=== PATIENT | female | born 1970 | race African-American/Black ===

== ENCOUNTER 2022-12-05 18:06 | Emergency (ER) | payer BC, SELFPAY ==
--- NOTE | ~2022-12-05 | XR_ITS ---
EXAMINATION: XR foot LT min 3V DATE: 12/05/2022 21:00 INDICATION: Left heel pain. TECHNIQUE: 3 views of left foot were obtained. COMPARISON: None. FINDINGS: There is moderate hallux valgus. No fracture. There is mild osteoarthritis of first metatar sophalangeal joint. There is mild midfoot osteoarthritis. There are enthesophytes at the posterior an d plantar aspects of calcaneal tuberosity. IMPRESSION: 1. Mild polyarticular osteoarthritis. 2. Moderate hallux valgus. Reviewed, dictated and finalized at location E.
[2022-12-05 18:34] VITALS: BP 133/101; PULSE 68; RESP 18; TEMP 36.6; O2SAT 100
--- NOTE | 2022-12-05 20:54 | ED.EXTPRO ---
HPI - Extremity Problem General Chief complaint: Extremity Problem,Nontraumatic Stated complaint: swelling to feet Time Seen by Provider: 12/05/22 19:45 History of Present Illness HPI Narrative: Patient is a 52-year-old female presenting with bilateral feet swelling. Patient states that she recently came home from a trip. States that after the flight, she noticed that both of her ankles and feet were swollen. States that they felt tight and kind of sore. She then went to work today and she is on her feet all day. States that they have started to become less swollen but after being on her feet they were more swollen again. States that she has some pain in her left heel. She denies any calf swelling, redness, soreness. No prior blood clots. No chest pain or shortness of breath. No recent trauma. No further concerns. Related Data Home Medications Medication Instructions Recorded Confirmed phenazopyridine 95 mg tablet 95 mg PO TID 12/14/18 12/14/18 sulfamethoxazole 800 1 tablet PO Q12H 12/14/18 12/14/18 mg-trimethoprim 160 mg tablet (Bactrim DS) Allergies Allergy/AdvReac Type Severity Reaction Status Date / Time latex Allergy Anaphylaxis Verified 12/05/22 19:27 Review of Systems Review of Systems: All systems reviewed & are unremarkable except as noted in HPI and below PMFSH Social History Social History Gender identity (if verbalized by the patient): Female Exam Narrative: GENERAL: Well-appearing, in no acute distress, pleasant and cooperative HEAD: Normocephalic, atraumatic. EYES: PERRLA and EOMI. ENT: Grossly unremarkable NECK: Supple. CHEST: Clear to auscultation. No respiratory distress. HEART: Regular rate and rhythm. Normal peripheral pulses. ABDOMEN: Nondistended EXTREMITIES: Bilateral edema up to ankle level, no calf involvement, no redness, no tenderness; some mild tenderness of the left heel into the Achilles SKIN: Warm, dry, no rash. NEURO: Alert and oriented x3. PSYCH: Normal mood and affect. Course Vital Signs Vital signs: Vital Signs Temperature 97.8 F 12/05/22 18:34 Pulse Rate 68 12/05/22 18:34 Respiratory Rate 18 12/05/22 18:34 Blood Pressure 133/101 H 12/05/22 18:34 Pulse Oximetry 100 12/05/22 18:34 Oxygen Delivery Room Air 12/05/22 18:34 Temperature 97.8 F 12/05/22 18:34 Pulse Rate 63 12/05/22 22:32 Respiratory Rate 15 12/05/22 22:32 Blood Pressure 139/77 12/05/22 22:32 Pulse Oximetry 100 12/05/22 22:32 Oxygen Delivery Room Air 12/05/22 18:34 MDM - Extremity (Nontraumatic) MDM Narrative Medical decision making narrative: Patient is a 52-year-old female presenting with bilateral ankle swelling. Vitals are stable. Exam remarkable for the above. She does have bilateral edema up to her ankles. It is consistent with dependent peripheral edema. I do not suspect DVT at this time given the bilaterality of the swelling, the lack of calf involvement, no tenderness or redness. Wells criteria shows low risk for DVT. Patient states that she is on her feet for at least 10 to 12 hours/day and the swelling seems to get worse after this. We will check basic blood work to assess for kidney, liver, heart failure. Blood work is unremarkable. Renal function normal. No transaminitis. Normal proBNP. X-ray reveals heel spurs on the left consistent with where she is tender. Discussed wearing comfortable supportive shoes while at work. Advise compression stockings and keeping her feet elevated is much as possible. Advise close PCP follow-up. Appropriate return precautions given. Patient voiced understanding and is agreeable with plan. Discharged in stable condition. Differential Diagnosis Differential diagnosis: Likely lower extremity edema and other (Heel spurs, feet swelling) Medical Records Attestation: I reviewed the patient's medical records. Lab Data Attestation: I reviewed
[2022-12-05 21:18] LABS: Basophils Percent Auto 0.5 % (0.2-1.2); Eosinophils Absolute Auto 0.2 K/mm3 (0-0.3); Eosinophils Percent Auto 3.2 % (0-4.4); Hematocrit 39.9 % (37.0-47.0); Hemoglobin 12.1 g/dL (12.0-15.0); Immature Granulocyte Absolute 0.01 K/mm3 (0.00-0.031); Immature Granulocyte Percent A 0.2 % (0-0.5); Lymphocytes Absolute Auto 2.11 K/mm3 (0.9-3.2); Lymphocytes Percent Auto 37.3 % (18.3-44.2); Mean Corpuscular HGB Conc 30.3 g/dl (32-36); Mean Corpuscular Hemoglobin 26.6 pg (26-34); Mean Corpuscular Volume 87.7 fl (80-100); Mean Platelet Volume 10.3 fl (7.4-10.4); Monocytes Absolute Auto 0.3 K/mm3 (0.1-0.6); Monocytes Percent Auto 4.4 % (2.6-8.5); Neutrophils Absolute Auto 3.1 K/mm3 (1.3-6.7); Neutrophils Percent Auto 54.4 % (45.5-73.1); Platelet Count Result 359 k/mm3 (150-375); Red Blood Count 4.55 M/mm3 (4.2-5.4); Red Cell Distribution Width 13.8 % (11.5-14.5); White Blood Count 5.7 K/mm3 (4.5-10.0)
[2022-12-05 21:27] LABS: Alanine Aminotransferase 22 U/L (6-35); Albumin Level 4.4 g/dL (3.5-5.1); Alkaline Phosphatase 90 U/L (38-126); Anion Gap 6 mmol/L (8-16); Aspartate Amino Transferase 27 U/L (14-36); Bilirubin,Total 0.4 mg/dL (0.2-1.3); Blood Urea Nitrogen 12 mg/dL (7-17); Calcium 9.1 mg/dL (8.4-10.2); Carbon Dioxide 27 mmol/L (22-30); Chloride 105 mmol/L (98-107); Estimated CRCL calculation 115 ml/min; Estimated Glomerular Filt Rate > 60; Glucose 87 mg/dL (65-110); Potassium 4.1 mmol/L (3.4-5.0); Sodium 138 mmol/L (137-145)
[2022-12-05 21:35] LABS: NT Pro B Type Natriuretic Pept 31 pg/mL (19.9-100)
[2022-12-05 22:32] VITALS: BP 139/77; PULSE 63; RESP 15; O2SAT 100
== END 2022-12-05 22:33 | disposition home or self-care (01) ==
PROVIDERS: Emergency Provider Emergency Medicine
DX: M77.32 Calcaneal spur, left foot (principal); R60.0 Localized edema
CPT/HCPCS: 36415; 73630; 80053; 83880; 85025; 99283

== ENCOUNTER 2023-06-29 13:03 | Emergency (ER) | payer BC, SELFPAY ==
--- NOTE | ~2023-06-29 | XR_ITS ---
EXAMINATION: XR foot RT min 3V DATE: 06/29/2023 15:15 INDICATION: Right foot pain. TECHNIQUE: 4 views of right foot were obtained. COMPARISON: None. FINDINGS: There is mild hallux valgus. No fracture. There is mild osteoarthritis of first metatarsoph alangeal joint. There is mild midfoot osteoarthritis. There are enthesophytes at the posterior and pl augusto aspects of calcaneal tuberosity. IMPRESSION: 1. Mild hallux valgus. 2. Mild polyarticular osteoarthritis. Reviewed, dictated and finalized at location E.
[2023-06-29 13:07] VITALS: BP 150/88; PULSE 79; RESP 18; TEMP 36.8; O2SAT 100
--- NOTE | 2023-06-29 14:52 | ED.EXTPRO ---
HPI - Extremity Problem General Chief complaint: Extremity Problem,Nontraumatic <Elina Harris PA-C - Last Filed: 06/30/23 21:03> Stated complaint: foot swelling <SILVIANO Mccormack Last Filed: 06/30/23 21:03> Time Seen by Provider: 06/29/23 15:06 <SILVIANO Mccormack Last Filed: 06/30/23 21:03> Focused HPI: 52-year-old female presents to emergency department for pain and swelling to the dorsum of her right foot for 3 days. Patient denies injury or trauma to the area. States she has been soaking her foot with some improvement and wear compression stockings. States the pain worsened which prompted her to come to the ED. She was seen in our emergency department on 12/04 for similar symptoms. No fever, nausea vomiting, chest pain or shortness of breath, history of VTE. No calf pain. GENERAL: Well-appearing, well-nourished, and in no acute distress. HEAD: Normocephalic, atraumatic. CHEST: Clear to auscultation. ?No respiratory distress. HEART: Regular rate and rhythm.? MSK: No swelling to BLE. DP pulses 2+. Sensation intact. NEURO: ?Alert and oriented x3. Patient screened in triage and initial orders placed.? ?Additional care and disposition to be based upon?diagnostic testing and treatment. Declines pain medication. <Elina Harris PA-C - Last Filed: 06/30/23 21:03> Related Data Home medications: Home Medications Medication Instructions Recorded Confirmed phenazopyridine 95 mg tablet 95 mg PO TID 12/14/18 12/14/18 sulfamethoxazole 800 1 tablet PO Q12H 12/14/18 12/14/18 mg-trimethoprim 160 mg tablet (Bactrim DS) <SILVIANO Mccormack Last Filed: 06/30/23 21:03> Allergies/Adverse reactions: Allergies Allergy/AdvReac Type Severity Reaction Status Date / Time latex Allergy Anaphylaxis Verified 12/05/22 19:27 <SILVIAON Mccormack Last Filed: 06/30/23 21:03> PMFSH Social History Social History: Social History Gender identity (if verbalized by the patient): Female <Elina Harris PA-C - Last Filed: 06/30/23 21:03> Course Vital Signs Vital signs: Vital Signs Temperature 98.2 F 06/29/23 13:07 Pulse Rate 79 06/29/23 13:07 Respiratory Rate 18 06/29/23 13:07 Blood Pressure 150/88 H 06/29/23 13:07 Pulse Oximetry 100 06/29/23 13:07 Oxygen Delivery Room Air 06/29/23 13:07 Temperature 98.1 F 06/29/23 16:50 Pulse Rate 76 06/29/23 16:50 Respiratory Rate 15 06/29/23 16:50 Blood Pressure 158/87 H 06/29/23 16:50 Pulse Oximetry 100 06/29/23 16:50 Oxygen Delivery Room Air 06/29/23 13:07 <Elina Harris PA-C - Last Filed: 06/30/23 21:03> Vital Signs Temperature 98.2 F 06/29/23 13:07 Pulse Rate 79 06/29/23 13:07 Respiratory Rate 18 06/29/23 13:07 Blood Pressure 150/88 H 06/29/23 13:07 Pulse Oximetry 100 06/29/23 13:07 Oxygen Delivery Room Air 06/29/23 13:07 Temperature 98.1 F 06/29/23 16:50 Pulse Rate 76 06/29/23 16:50 Respiratory Rate 15 06/29/23 16:50 Blood Pressure 158/87 H 06/29/23 16:50 Pulse Oximetry 100 06/29/23 16:50 Oxygen Delivery Room Air 06/29/23 13:07 <Kamryn Draper MD - Last Filed: 07/02/23 10:39> MDM - Extremity (Nontraumatic) MDM Narrative Medical decision making narrative: Patient presents with some swelling and pain to her left foot, better with soaking it, has no other complaints, no recent injuries. Had similar symptoms in the past. No lower leg swelling or tenderness, have low concern for DVT. X-ray obtained showing arthritis. I will give her NSAIDs and trial some steroids for her foot pain and have her follow up Podiatry with return precautions. Patient is agreeable to this plan. <Kamryn Draper MD - Last Filed: 07/02/23 10:39> Discharge Plan Discharge Clinical Impression: Foot pain <Elina Harris PA-C - Last Filed: 06/30/23 2
[2023-06-29] MEDS: KETOROLAC 30 MG/ML VIAL (*BKC) 15 MG IM (16:06)
[2023-06-29 16:50] VITALS: BP 158/87; PULSE 76; RESP 15; TEMP 36.7; O2SAT 100
== END 2023-06-29 16:57 | disposition home or self-care (01) ==
PROVIDERS: Emergency Provider Emergency Medicine
DX: M79.671 Pain in right foot (principal)
CPT/HCPCS: 73630; 96372; 99283; J1885